=== PATIENT | female | born 1995 | race Caucasian/White ===

== ENCOUNTER 2019-02-20 06:29 | Emergency (ER) | payer OTHER ==
[~2019-02-20] VITALS: Ht 160 cm; Wt 60.8 kg
[2019-02-20 06:48] VITALS: Ht 160 cm; Wt 60.8 kg
[2019-02-20 08:48] VITALS: BP 130/82
== END 2019-02-20 09:01 | disposition home or self-care (01) ==
LOC: ED 06:29
DX: N75.1 Abscess of Bartholin's gland (principal)
CPT/HCPCS: J2001